=== PATIENT | female | born 2000 | race Caucasian/White ===

== ENCOUNTER 2022-10-19 16:19 | Outpatient (REF) | payer SELFPAY ==
--- NOTE | ~2022-10-19 | US_ITS ---
EXAMINATION: US OBSTETRICAL ULTRASOUND CLINICAL INFORMATION: 11 week , threatened COMPARISON: None available. TECHNIQUE: Real-time examination. FINDINGS: There is a single intrauterine gestational sac with visible yolk sac, embryo/fetus, and cardiac activity. There is no significant subchorionic hemorrhage or hematoma. HR: 170 beats per minute. The crown-rump length of 2.57 cm is consistent with an ultrasound gestational age of 9 weeks 3 days. MATERNAL ADNEXA: The bilateral ovaries are not seen due to bowel gas shadowing. US/US OB <= 14 weeks fetus IMPRESSION: Single intrauterine gestation with heartbeat with estimated ultrasound gestational age of 9 weeks 3 days. The ovaries are not seen due to bowel gas shadowing.
== END 2022-10-19 16:20 | disposition home or self-care (01) ==
LOC: HO.US 16:19
PROVIDERS: Visit Provider Advanced Practice Midwife
DX: O02.1 Missed abortion (principal)
CPT/HCPCS: 76801